=== PATIENT | female | born 1965 | race American Indian/Alaskan Native ===

== ENCOUNTER 2021-10-17 06:28 | Day surgery (SDC) | payer BC ==
--- NOTE | 2021-10-16 16:49 | Short Stay Summary ---
Short Stay Documentation Date of service: 10/16/21 Narrative H&P: Patient presented for [facility] for preop clearance. Patient tolerated procedure well with no complications - History Past Medical History: atrial fib, anemia, hypertension, other (Aortic valve stenosis obesity asthma) Past Surgical History: tonsillectomy Social history: no significant social history - Physical exam General appearance: no acute distress Integumentary: no rash HEENT: PERRLA Lungs: Clear to auscultation Heart: Regular rate Gastrointestinal: normoactive bowel sounds Extremities: no ischemia, pulses intact Neurological: Normal speech - Brief post op/procedure progress note Date of procedure: 10/17/21 Pre-op diagnosis: Aortic valve stenosis Post-op diagnosis: same Anesthesia: local Estimated blood loss: minimal - Hospital course Hospital course: Patient tolerated procedure well with no complications. Patient had normal coronaries. Patient instructed to hold Eliquis 3 days prior to the procedure. Patient verbalizes acknowledged understanding - Disposition Condition at discharge: Good Disposition: 01 HOME / SELF CARE / HOMELESS Short Stay Discharge Plan Activity: advance as tolerated Diet: low fat, low cholesterol, low salt Wound: keep clean and dry, per your surgeon's advice Additional Instructions: Hold Eliquis 3 days prior to procedure Follow up with: JOAQUINA GONZALEZ MD [Primary Care Provider] - 7 Days SAMANTHA TUCKER MD [Staff Physician] - 11/22/21 3:45 pm (Patient has a follow-up appointment with on 11/22/2021 at 3:45 PM at our [place] location. Phone #[phone])
[2021-10-17] MEDS ORDERED: ASPIRIN EC 325 MG TAB PO NR (07:14)
[2021-10-17 07:45] LABS: Basophils % (Auto) 0.5 % (0.0-1.8); Eosinophils # (Auto) 0.3 K/mm3 (0.0-0.4); Eosinophils % (Auto) 5.9 % (0.0-4.3); Hematocrit 35.7 % (30.3-42.9); Lymphocytes # (Auto) 1.6 K/mm3 (1.2-5.4); Lymphocytes % (Auto) 33.8 % (13.4-35.0); Mean Corpuscular HGB Conc 31 % (30-34); Mean Corpuscular Volume 91 fl (79-97); Monocytes # (Auto) 0.3 K/mm3 (0.0-0.8); Monocytes % (Auto) 7.4 % (0.0-7.3); Platelet Count 201 K/mm3 (140-440); Red Blood Count 3.92 M/mm3 (3.65-5.03); Red Cell Distribution Width 15.5 % (13.2-15.2)
[2021-10-17 07:59] LABS: INR 0.9 (0.87-1.13)
[2021-10-17] MEDS ORDERED: SODIUM CHLORIDE 0.9% 500 ML 500 ML IV SCH (08:00)
[2021-10-17 08:04] LABS: Partial Thromboplastin Time 27.8 Sec. (24.2-36.6)
[2021-10-17 08:47] LABS: Blood Urea Nitrogen 17 mg/dL (7-17); Calcium 9.4 mg/dL (8.4-10.2); Hemolysis Index 6
[2021-10-17 08:49] LABS: BUN/Creatinine Ratio 24
[2021-10-17] MEDS ORDERED: HEPARIN 10,000 UNITS/10 ML VIAL ONE (10:01)
[2021-10-17] MEDS ORDERED: VERAPAMIL 5 MG/2 ML INJ ONE (10:01)
[2021-10-17] MEDS ORDERED: NITROGLYCERIN SYRINGE 3 ML ONE (10:01)
[2021-10-17] MEDS ORDERED: HEPARIN/NS 5000 UNIT/500ML 1,000 ML IR ONE (10:01)
[2021-10-17] MEDS ORDERED: LIDOCAINE (2%) 20 MG/1 ML VIAL 20 ML MDV INFILTRATI ONE (10:01)
[2021-10-17] MEDS ORDERED: MIDAZOLAM 2 MG/2 ML INJ ONE (10:02)
[2021-10-17] MEDS ORDERED: fentaNYL 100 MCG/2 ML INJ ONE (10:02)
[2021-10-17] MEDS ORDERED: ACETAMINOPHEN 500 MG TAB PO ONE (13:12)
[2021-10-17 14:18] VITALS: BP 137/95
--- NOTE | 2021-10-18 08:40 | Cardiac Catherization Report ---
DATE OF PROCEDURE: 10/17/2021 CARDIAC CATHETERIZATION REFERRING PHYSICIANS: Dr. Graves and Dr. Declan Naylor. INDICATIONS FOR PROCEDURE: The patient is a very pleasant 55-year-old -[place] female with history of severe aortic stenosis, being evaluated in preop evaluation for surgical aortic valve replacement. Has been evaluated by the Structural Heart Team at [facility]. Risks, benefits and alternatives discussed. PROCEDURE IN DETAIL: The patient was brought to the laborer tin can in a postabsorptive state, prepped and draped in sterile fashion. Cecil's test in right hand is normal. Then, 2 mL of 2% lidocaine used to anesthetize the right wrist. A standard 6-Romanian hydrophilic sheath used to cannulate the right radial artery via modified Seldinger technique. All exchanges were performed to exchange a J-tip guidewire. JL3.5 catheter used to engage the left main. No dampening or ventricularization. Cineangiography performed in multiple projections. JR4 catheter used to cross the aortic valve under fluoroscopic guidance. Left ventriculography performed in 30-degree LOZOYA and 30-degree WOLOF projections via hand injections, catheter flushed. Manual pullback performed with continuous pressure monitoring. Catheter was engaged in right coronary. No dampening or ventricularization. Cineangiography performed in multiple views and multiple projections. Next, catheter removed from the body over wire, sheath removed. Manual pressure used to achieve hemostasis. There were no immediate complications. I directly supervised the administration of moderate sedation with fentanyl and Versed from 10:30 a.m. to 11:00 a.m. The patient remained in normal sinus rhythm throughout the procedure. CORONARY ANATOMY: This is a strongly left dominant system. Very short left main, no significant disease in left main. Left circumflex is a moderate sized vessel, courses AV groove, gives off a left PDA. No significant disease. LAD is a moderate sized vessel, courses anterior interventricular groove, wraps around the apex. No significant disease in the LAD or diagonal system. Right coronary artery is small nondominant. No significant disease. LEFT VENTRICULOGRAPHY: Shows normal left ventricular systolic performance, estimated ejection fraction 55-60. PRESSURE READINGS: Aortic pressure is 118/70, LV pressure is 192, LVEDP of 18, peak gradient of approximately 75 mmHg, and mean gradient of approximately 45 mmHg. CONCLUSIONS: 1. No angiographic evidence of significant epicardial coronary artery disease in the left dominant system. 2. Normal left ventricular systolic performance, estimated ejection fraction of 55-60. 3. Severe valvular aortic stenosis. A. [id number] gradient of approximately 75 mmHg. B. Mean gradient of approximately 45 mmHg. The patient is clinically stable. Standard radial care. Follow up with Dr. Nalyor and Dr. Graves. Apparently, she is scheduled for surgical aortic valve replacement next week. We will restart Eliquis as well and to hold 3 days prior to her surgery. Results of procedure explained at length to the patient and family. All questions were addressed. TID: [id number] RECEIPT: [id number] EDGARDO/DANDRE/KISHOR JOHNS
== END 2021-10-17 15:10 | disposition home or self-care (01) ==
LOC: CATHLABREC 06:28
PROVIDERS: ATTEND Internal Medicine
DX: I48.0 Paroxysmal atrial fibrillation (principal); I35.0 Nonrheumatic aortic (valve) stenosis; I11.0 Hypertensive heart disease with heart failure; I50.9 Heart failure, unspecified; E78.00 Pure hypercholesterolemia, unspecified; K21.9 Gastro-esophageal reflux disease without esophagitis; J45.909 Unspecified asthma, uncomplicated; Z79.899 Other long term (current) drug therapy; Z98.890 Other specified postprocedural states; Z72.89 Other problems related to lifestyle
CPT/HCPCS: 36415; 80048; 85025; 85610; 85730; 93005; 93458; 99156; 99157; C1894; J1644; J1815; J2250; J3010; J3490; J7040; Q9967